=== PATIENT | female | born 1955 | race Caucasian/White ===

== ENCOUNTER 2022-08-17 10:30 | Emergency (ER) | payer MEDICARE, MEDICAID, SELFPAY ==
[2022-08-17 10:23] VITALS: BP 170/92; PULSE 104; RESP 20; TEMP 36.6; O2SAT 98
--- NOTE | 2022-08-17 10:34 | ED.GENADULT ---
HPI - General Adult General Chief complaint: Upper Respiratory Infection Stated complaint: sick since History of Present Illness HPI narrative: 67-year-old female presenting the emergency department for evaluation of nasal congestion, intermittent ear pain and body aches. Patient states she began having the symptoms on Thursday. Patient denies any associated nausea or vomiting. Patient states that she was vaccinated against COVID but not against influenza. Related Data Allergies Allergy/AdvReac Type Severity Reaction Status Date / Time metronidazole Allergy Severe metronidazole Verified 08/17/22 11:01 ([id number]) gluten Allergy Mild gluten Verified 08/17/22 11:01 ([id number]) Penicillins Allergy Unknown Penicillins Verified 08/17/22 11:01 ([id number]) Review of Systems Review of Systems: CONSTITUTIONAL: See HPI EYES: Denies visual changes, redness, or discharge. ENT: See HPI CARDIOVASCULAR: Denies chest pain, palpitations, or edema. RESPIRATORY: See HPI GASTROINTESTINAL: Denies abdominal pain, nausea, vomiting, or diarrhea. GENITOURINARY: Denies dysuria or hematuria. SKIN: Denies rash or itching. MUSCULOSKELETAL: Denies back pain, joint pain, or myalgia. NEUROLOGIC: Denies headache, numbness, or weakness. PSYCHIATRIC: Denies anxiety or depression. [facility] Family History Family History (Updated 04/16/18 @ 07:58 by DOCTOR UNKNOWN) Other Carcinoma of colon Hypertension Social History Social History Smoking status: Never smoker Alcohol intake: current Exam Narrative: APPEARANCE: Well appearing, no pain, no distress, well-nourished. HEAD: normocephalic, atraumatic. EYES: PERRLA/EOMI, conjunctivae clear. NOSE: Normal no drainage EARS: Some fluid behind TMs bilaterally. No bulging or erythematous TMs. THROAT: Pharynx clear, no exudate. NECK: Supple. No adenopathy, no masses. RESPIRATORY: Lungs are clear to auscultation, respirations nonlabored CARDIOVASCULAR: Regular rate and rhythm without murmurs rubs or gallops. ABDOMINAL: Soft, nontender, nondistended, normal bowel sounds MUSCULOSKELETAL: Moves all extremities. Strength/ROM intact, No edema, No calf tenderness. NEURO: Alert. Cranial nerves II through XII intact. Grossly intact SKIN: Warm, dry. Normal Color Course Course Emergency Course: Patient was negative for flu and for COVID. Patient's vital signs are within normal limits. Patient most likely has a viral etiology for her underlying symptoms. Patient was provided Tessalon Perles and albuterol inhaler for symptom control. Patient was educated on the importance of close follow-up with her primary care physician. Vital Signs Vital signs: Vital Signs Temperature 97.8 F 08/17/22 10:23 Pulse Rate 104 H 08/17/22 10:23 Respiratory Rate 20 08/17/22 10:23 Blood Pressure 170/92 H 08/17/22 10:23 Pulse Oximetry 98 08/17/22 10:23 Oxygen Delivery Room Air 08/17/22 10:23 Temperature 97.8 F 08/17/22 10:23 Pulse Rate 94 08/17/22 12:40 Respiratory Rate 18 08/17/22 12:40 Blood Pressure 157/97 H 08/17/22 12:40 Pulse Oximetry 98 08/17/22 12:40 Oxygen Delivery Room Air 08/17/22 10:36 Medical Decision Making Vital Signs Vital Signs: Vital Signs Temperature 97.8 F 08/17/22 10:23 Pulse Rate 104 H 08/17/22 10:23 Respiratory Rate 20 08/17/22 10:23 Blood Pressure 170/92 H 08/17/22 10:23 Pulse Oximetry 98 08/17/22 10:23 Oxygen Delivery Room Air 08/17/22 10:23 Temperature 97.8 F 08/17/22 10:23 Pulse Rate 94 08/17/22 12:40 Respiratory Rate 18 08/17/22 12:40 Blood Pressure 157/97 H 08/17/22 12:40 Pulse Oximetry 98 08/17/22 12:40 Oxygen Delivery Room Air 08/17/22 10:36 Lab Data Lab results reviewed: Yes I reviewed the patient's lab results. Labs: Lab Results 08/17/22 Range/Units 10:40 Influenza A (RT-PCR) Negative (Negative) Influenza B (RT-PCR) Negative (Negative) RSV (RT-PCR
[2022-08-17 10:36] VITALS: O2SAT 99
[2022-08-17 10:59] VITALS: BP 170/95; PULSE 88; RESP 18; O2SAT 96
[2022-08-17 11:28] LABS: Influenza A QL RT-PCR Negative (Negative); Influenza B QL RT-PCR Negative (Negative); RSV RNA, RT-PCR Negative (Negative); SARS-CoV-2 RNA PCR Negative
[2022-08-17 11:55] VITALS: BP 168/86; PULSE 80; RESP 18; O2SAT 96
[2022-08-17 12:40] VITALS: BP 157/97; PULSE 94; RESP 18; O2SAT 98
== END 2022-08-17 12:40 | disposition home or self-care (01) ==
PROVIDERS: Emergency Provider Emergency Medicine
DX: J06.9 Acute upper respiratory infection, unspecified (principal); Z20.822 Contact with and (suspected) exposure to COVID-19
CPT/HCPCS: 87637; 99283

== ENCOUNTER 2023-04-23 12:25 | Observation (INO) | payer MEDICARE, MEDICAID, SELFPAY ==
[2023-04-23] VITALS (40 sets, daily range): BP systolic 154–209; BP diastolic 70–105; PULSE 67–91; RESP 11–25; TEMP 36.4–36.7; O2SAT 93–100; BMI 40.8
--- NOTE | ~2023-04-23 | XR_ITS ---
XR chest 2V 04/23/2023 15:14 Indication: Syncope. Nausea and vomiting. Procedure: 2 view chest 06/07/2015 Comparison: 06/07/2015 Findings: Cardiomegaly. Subsegmental atelectasis left mid thorax. No focal pneumonia, edema, pleural effusion or pneumothorax. Impression: 1: Subsegmental atelectasis left mid thorax. Reviewed, dictated and finalized at location L. Impression: 1: Subsegmental atelectasis left mid thorax.
--- NOTE | ~2023-04-23 | MR_ITS ---
EXAMINATION: MR brain/brain stem wo con DATE: 04/24/2023 15:43 INDICATION: Severe vertigo TECHNIQUE: Magnetic resonance imaging (MRI) of the brain and brainstem was performed without intraven ous contrast. Sequences included sagittal and axial T1-weighted SE, axial diffusion-weighted FS SE, a xial T2*-weighted GRE, axial T2-weighted FLAIR, and axial T2-weighted FSE. Postcontrast axial and cor onal T1-weighted SE was obtained. Apparent diffusion coefficient (ADC) maps were created. COMPARISON: Head CT and CT angiogram dated 04/23/2023 FINDINGS: There are no areas of restricted diffusion to suggest acute infarction. No intracranial hemorrhage or abnormal intracranial mass lesion. There are scattered areas of nonspecific increased T2-weighted si gnal intensity in the cerebral white matter, predominantly involving the deep and periventricular whi te matter. There are no intraparenchymal signal abnormalities seen on the other pulse sequences. The ventricles are symmetric and normal in size. There are no abnormal extra-axial fluid collections. Mane w voids are seen in the cerebral arteries on the T2-weighted sequences consistent with their expected patency. Mild mucosal thickening the paranasal sinuses with is retention cyst in the right maxillary sinus. Visualized orbits and soft tissues are unremarkable. IMPRESSION: 1. Extensive scattered cerebral, deep and pontine white matter T2 hyperintensity likely sequela of ch ronic small vessel ischemic disease. No acute intracranial process. Reviewed, dictated and finalized at location A. IMPRESSION: 1. Extensive scattered cerebral, deep and pontine white matter T2 hyperintensit y likely sequela of chronic small vessel ischemic disease. No acute intracrania l process.
--- NOTE | ~2023-04-23 | CT_ITS ---
EXAMINATION: CTA BRAIN/CAROTID DATE: 04/23/2023 14:57 INDICATION: Syncope TECHNIQUE: Computed tomographic angiography (CTA) of the head and neck was performed with 100 mL Omni paque-350 intravenous contrast. Multiplanar reconstructions and maximum intensity projection 3D-recon structions of the carotid arteries and of the intracranial arteries were created by the technologist on a separate workstation. Precontrast CT of the head was also obtained. Automated exposure control and iterative reconstruction technique were employed.The dose-length product was 1825.91 mGy-cm. COMPARISON: None. FINDINGS: Carotid arteries: Normal caliber of the thoracic aorta with small amount of atherosclerotic plaque with no stenosis or dissection. There is 0% stenosis of the right carotid bulb relative to normal distal artery lumen marizol meter (NASCET criteria). Mild tortuosity of the more distal extra cranial internal carotid artery wit h 30% stenosis at a mild kink in the artery where it undergoes a relatively abrupt change in course. There is 0% stenosis of the left carotid bulb relative to normal distal artery lumen diameter. There is tortuosity of the proximal aspect of the bilateral vertebral arteries. Mild cervical spondylosis. Respiratory motion and mild atelectasis in the visualized mid to upper lung zones. Head: No acute intracranial hemorrhage, acute infarction or abnormal extra axial fluid collection. There is moderate scattered white matter hypoattenuation consistent with chronic small vessel ischemic diseas e. Ventricles are normal and symmetric. No mass/mass effect. The orbits, paranasal sinuses and masto id air cells are normal. Intracranial arteries There is no hemodynamically significant stenosis in the vertebral, basilar and internal carotid arter ies. Vertebral arteries are codominant. There are no aneurysms identified. Both A1 and P1 segments a re patent. There is also a patent right posterior commuting artery. Cerebral arterial arborization ap pears symmetric. No abnormally enhancing brain lesions identified. IMPRESSION: 1. No acute intracranial process with moderate scattered white matter hypoattenuation consistent with chronic small vessel ischemic disease.. 2. 0% stenosis of the right and left carotid bulbs relative to normal distal artery lumen diameter (N ASCET criteria). There is however a 30% stenosis in the more distal extracranial right internal carot id artery due to a kink in the course of the artery. 3. Unremarkable cerebral CT angiogram with no evident thrombosis, aneurysm or dissection. Reviewed, dictated and finalized at location A. IMPRESSION: 1. No acute intracranial process with moderate scattered white matter hypoatten uation consistent with chronic small vessel ischemic disease.. 2. 0% stenosis of the right and left carotid bulbs relative to normal distal ar rashaun lumen diameter (NASCET criteria). There is however a 30% stenosis in the m ore distal extracranial right internal carotid artery due to a kink in the cour se of the artery. 3. Unremarkable cerebral CT angiogram with no evident thrombosis, aneurysm or d issection.
--- NOTE | 2023-04-23 12:51 | ECG_ITS ---
Measurements Intervals [place] Rate: 74 P: 0 [place]: 140 QRS: -19 QRSD: 134 T: 15 QT: 418 QTc: 467 Interpretive Statements SINUS RHYTHM WITH FREQUENT VENTRICULAR PREMATURE COMPLEXES INTRAVENTRICULAR CONDUCTION DELAY [130+ ms QRS DURATION] VOLTAGE CRITERIA FOR LVH [MEETS CRITERIA IN ONE OF: R(aVL), S(V1), R(V5), R(V5/V6)+S(V1)] NO PREVIOUS ECG AVAILABLE FOR COMPARISON Electronically Signed On 04-23-2023 15:40:43 CDT by Bethany Black M.D.
[2023-04-23 12:57] LABS: Basophils Absolute Auto 0.1 K/mm3 (0.0-0.1); Basophils Percent Auto 1.2 % (0.2-1.2); Eosinophils Absolute Auto 0.1 K/mm3 (0-0.3); Eosinophils Percent Auto 0.7 % (0-4.4); Hematocrit 46.3 % (37.0-47.0); Hemoglobin 15.3 g/dL (12.0-15.0); Immature Granulocyte Absolute 0.11 K/mm3 (0.00-0.031); Immature Granulocyte Percent A 1.5 % (0-0.5); Lymphocytes Absolute Auto 1.44 K/mm3 (0.9-3.2); Mean Corpuscular Hemoglobin 32.2 pg (26-34); Mean Corpuscular Volume 97.5 fl (80-100); Mean Platelet Volume 10.1 fl (7.4-10.4); Monocytes Absolute Auto 0.4 K/mm3 (0.1-0.6); Monocytes Percent Auto 5.7 % (2.6-8.5); Neutrophils Absolute Auto 5.5 K/mm3 (1.3-6.7); Neutrophils Percent Auto 71.9 % (45.5-73.1); Platelet Count Result 213 k/mm3 (150-375); Red Blood Count 4.75 M/mm3 (4.2-5.4); Red Cell Distribution Width 14.1 % (11.5-14.5); White Blood Count 7.6 K/mm3 (4.5-10.0)
[2023-04-23 13:06] LABS: Anion Gap 5 mmol/L (8-16); Blood Urea Nitrogen 17 mg/dL (7-17); Carbon Dioxide 25 mmol/L (22-30); Chloride 104 mmol/L (98-107); Estimated CRCL calculation 130 ml/min; Potassium 3.8 mmol/L (3.4-5.0); Sodium 134 mmol/L (137-145)
[2023-04-23 13:07] LABS: Alanine Aminotransferase 22 U/L (6-35); Albumin Level 4.3 g/dL (3.5-5.1); Alkaline Phosphatase 81 U/L (38-126); Aspartate Amino Transferase 23 U/L (14-36); Bilirubin,Total 0.8 mg/dL (0.2-1.3); Calcium 8.2 mg/dL (8.4-10.2); Estimated Glomerular Filt Rate > 60; Glucose 169 mg/dL (65-110); Lipase 42 U/L (23-300)
--- NOTE | 2023-04-23 13:24 | ED.NAVMDI ---
HPI - Nausea/Vomiting/Diarrhea General Chief complaint: Nausea/Vomiting/Diarrhea Stated complaint: N/V, SYNCOPY Time Seen by Provider: 04/23/23 13:23 History of Present Illness HPI Narrative: Patient is a 68-year-old healthy female here with dizziness and syncope. She states that around 730 this morning she was lying in bed and began noticing dizziness. She describes it as the room spinning around her. It is worse with her eyes open and improves with her eyes closed. She denies any changes of the dizziness with positional changes. No history of vertigo in the past. She notes that the dizziness is associated with nausea, vomiting and 2 episodes of syncope. She describes a syncope as 2 episodes of passing out when the dizziness was severe. No prodromal chest pain or shortness of breath. No current chest pain or shortness of breath. No known cardiac history. No prior strokes. No upper or lower extremity numbness or weakness. No facial droop. No trauma. No cough, congestion, fever, chills. No urinary symptoms. Related Data Home Medications Medication Instructions Recorded Confirmed No Home Medications 04/23/23 04/23/23 Allergies Allergy/AdvReac Type Severity Reaction Status Date / Time metronidazole Allergy Severe metronidazole Verified 04/23/23 12:57 ([id number]) gluten Allergy Mild gluten Verified 04/23/23 12:57 ([id number]) Penicillins Allergy Unknown Penicillins Verified 04/23/23 12:57 ([id number]) Review of Systems Review of Systems: CONSTITUTIONAL: Denies fever, chills, or sweats. EYES: Denies visual changes, redness, or discharge. ENT: Denies rhinorrhea, congestion, sore throat, or otalgia. CARDIOVASCULAR: Denies chest pain, palpitations. + syncope, + dizziness. RESPIRATORY: Denies cough or dyspnea. GASTROINTESTINAL: Has nausea and vomiting. Denies abdominal pain, or diarrhea. GENITOURINARY: Denies dysuria or hematuria. SKIN: Denies rash or itching. MUSCULOSKELETAL: Denies back pain, joint pain, or myalgia. NEUROLOGIC: Denies headache, numbness, or weakness. PSYCHIATRIC: Denies anxiety or depression. [facility] Family History Family History Other Carcinoma of colon Hypertension Social History Social History Smoking status: Never smoker Alcohol intake: current Drinks per week: 1 Substance use: never Lack of Transportation: No Lack of Food: Never True Current Housing: I Have Housing Concerned About Future Housing: No Difficulty Paying Gas/Electric Bills: No Difficulty Paying for Meds: No Currently Unemployed: No Education: Don't Know Difficulty w/ Childcare or Family Care: No Spiritual care concerns: No Exam Narrative: GENERAL: Well-appearing, well-nourished, and in no acute distress. HEAD: Normocephalic, atraumatic. EYES: PERRLA and EOMI. Bilateral fatigable horizontal nystagmus ENT: Nares clear. Mucous membranes moist. NECK: Supple. CHEST: Clear to auscultation. No respiratory distress. HEART: Regular rate and rhythm. Normal peripheral pulses. ABDOMEN: Soft, nontender, nondistended. EXTREMITIES: Normal range of motion. No edema. SKIN: Warm, dry, no rash. NEURO: No focal deficits. No upper lower extremity drift. No facial droop. Poor compliance with [id number] or heel to salgado given difficulty keeping eyes open. Alert and oriented x3. PSYCH: Normal mood and affect. Course Course Emergency Course: Chart review performed. Patient's last ED visit was in 2021 for nasal congestion. Triage vitals show HTN of 209/105 initially followed by 165/90. Remainder of vitals within normal limits. Triage note shows here with dizziness and syncope. Patient seen evaluated. She does have a horizontal nystagmus, exam is most likely consistent with peripheral vertigo however given her age and inability to fully complete a neurologic exam will do CT CTA. Will start with Valium, Zofran. Given
[2023-04-23 13:27] LABS: Appearance Urine Clear (Clear); Bacteria Urine None Seen /hpf; Bilirubin Urine Negative (Negative); Blood Urine Negative (Negative); Color Urine Yellow (Yellow); Glucose Urine UA Negative (Negative); Ketones Urine 1+ mg/dL (Negative); Leukocyte Esterase Ur 1+ LEU/UL (Negative); Nitrate Urine Negative (Negative); Non Pathogenic Casts 0-2; Protein Urine 2+ mg/dL (Negative); RBC Urine 0-2 /hpf (0-2); Specific Grav Ur 1.016 (1.001-1.035); Squamous Epithelial Cell Urine None seen /hpf (Few); Urobilinogen Urine 0.2 mg/dL (<2.0)
[2023-04-23 13:30] LABS: Add Urine Microscopic? YES
[2023-04-23] MEDS: ONDANSETRON INJ 4 MG/2 ML VIAL IV PUSH (14:18)
[2023-04-23] MEDS: diazePAM INJ (*CRX) 10 MG/2 ML SYRINGE 5 MG IV PUSH ×2 (14:18→16:15)
--- NOTE | 2023-04-23 14:29 | PC.NURSE ---
pt off the floor to CT @1427. unable to assess orthostatic bp at this time due to unsteady gait from dizziness.
[2023-04-23 14:49] LABS: Troponin I < 0.012 ng/mL (0.000-0.034)
[2023-04-23] MEDS: MECLIZINE HCL 25 MG TABLET PO (16:13)
[2023-04-23 16:19] LABS: Troponin I < 0.012 ng/mL (0.000-0.034)
--- NOTE | 2023-04-23 20:15 | ADMGEN ---
This patient, Miley Vo, was admitted to Medical Room 247-. Patient/family oriented to hospital policies and general routines including ID bracelet, bed and alarms, visiting hours, pain management, procedures, bathroom and other care routines, personal items, smoking policy, room service/diet, and visiting hours. Information on how to activate the Rapid Response Team has been discussed. Patient/Family are encouraged to report perceived risks to care and to ask questions if they do not understand what they are told or what they should do.
--- NOTE | 2023-04-23 20:24 | PM.IMHP ---
H&P: HPI History of Present Illness Date/Time: 04/23/23 20:30 Chief Complaint: Dizziness, nausea, vomiting. Narrative: This is a 68-year-old female who presented to the emergency department via EMS from home for evaluation of dizziness, nausea, vomiting. The patient provides the following history. She felt fine when she got up this morning and after getting dressed she sat down to watch television. Shortly thereafter she developed sudden onset of severe vertigo described as ?everything was spinning? associated with nausea and multiple episodes of emesis. She was able to make her weight to bed where she believes that she had a brief syncopal episode. After lying down for a few minutes her symptoms improved albeit briefly before returning. The vertigo is worse with position changes and even with opening her eyes. She denies diplopia, facial droop, difficulty speaking and swallowing, focal weakness, and paresthesias. No headache, sinus congestion, sore throat, ear pain, hearing changes, or ringing in the ears. She has not had chest pain, palpitations, or sensations of racing heart. Of note her blood pressure was 209/105 on arrival to the ED. it has improved but her systolic readings continue to be in the 150s to 170s. She reports a history of hypertension but she is not currently on medication. Review of Systems Review of Systems: Twelve systems were reviewed. No headache, visual changes, or chest pain. Except as documented, all other systems were reviewed and are negative. [facility] Past Medical History Medical History Diverticulosis Hypertension Surgical History Surgical History (Updated 04/24/23 @ 14:38 by Sherron Christie PA-C) No history of previous surgery Family History Family History Other Carcinoma of colon Hypertension Social History Social History (Updated 04/24/23 @ 14:38 by Sherron Christie PA-C) Social History: Code status: Full code. Smoking status: Never smoker Alcohol intake: current Drinks per week: 1 Substance use: never Lack of Transportation: No Lack of Food: Never True Current Housing: I Have Housing Concerned About Future Housing: No Difficulty Paying Gas/Electric Bills: No Difficulty Paying for Meds: No Currently Unemployed: No Education: Don't Know Difficulty w/ Childcare or Family Care: No Spiritual care concerns: No Meds Home Medications and Allergies Home Medications Medication Instructions Recorded Confirmed Type No Home Medications 04/23/23 04/23/23 History Allergies Allergy/AdvReac Type Severity Reaction Status Date / Time metronidazole Allergy Severe metronidazole Verified 04/23/23 12:57 ([id number]) gluten Allergy Mild gluten Verified 04/23/23 12:57 ([id number]) Penicillins Allergy Unknown Penicillins Verified 04/23/23 12:57 ([id number]) Vital Signs Vital Signs - 24 hr 04/23/23 12:24 04/23/23 12:55 04/23/23 12:55 Temperature 97.6 F Pulse Rate 79 75 75 Respiratory Rate 16 18 17 Blood Pressure 209/105 H 165/90 H 165/90 H Pulse Oximetry 100 99 97 Oxygen Delivery Room Air 04/23/23 12:56 04/23/23 13:00 04/23/23 13:16 Temperature Pulse Rate 72 74 71 Respiratory Rate 13 18 14 Blood Pressure Pulse Oximetry 100 94 Oxygen Delivery 04/23/23 13:30 04/23/23 13:46 04/23/23 14:00 Temperature Pulse Rate 69 76 79 Respiratory Rate 11 L 22 H 13 Blood Pressure Pulse Oximetry 93 98 99 Oxygen Delivery 04/23/23 14:02 04/23/23 14:15 04/23/23 14:58 Temperature Pulse Rate 73 75 80 Respiratory Rate 15 21 H 14 Blood Pressure 175/85 H Pulse Oximetry 97 97 Oxygen Delivery 04/23/23 15:00 04/23/23 15:02 04/23/23 15:15 Temperature Pulse Rate 67 76 73 Respiratory Rate 11 L 16 16 Blood Pressure 154/88 H Pulse Oximetry 97 95 100 Oxygen Delivery
[2023-04-24] VITALS (10 sets, daily range): BP systolic 113–149; BP diastolic 53–69; PULSE 75–89; RESP 18–20; TEMP 36.7–37.2; O2SAT 92–96
--- NOTE | 2023-04-24 | ECHO_ITS ---
Patient Info Name: Miley Vo Age: 68 years : 1955 Gender: Female Ht: 64 in Wt: 237 lbs BSA: 2.26 m2 HR: 83 bpm BP: 149 / 69 mmHg Technical Quality: Fair Exam Date: 04/24/2023 2:02 PM Exam Location: [facility] Pulmonary Exam Room: [facility] Patient Status: Inpatient Admit Date: 04/23/2023 Staff Ordering Physician: Sherron Christie PA-C Partition Setter: Natasha Porras RDCS Attending Provider: Jackie Ryan DO Referring Physician: Pratik CHAVEZ; Exam Type: CA echo doppler color flow Study Info Indications - HTN Complete two-dimensional, color flow and Doppler transthoracic echocardiogram is performed. Summary 1. Complete two-dimensional, color flow and Doppler transthoracic echocardiogram is performed. 2. Left ventricular chamber dimension is normal. 3. Left ventricular systolic function is normal, estimated at 60-65%. 4. There is mild concentric increased left ventricular wall thickness. 5. The left ventricular diastolic function is grade I diastolic dysfunction. 6. E/e' 13 is mildly elevated. 7. Left atrial chamber dimension is mildly enlarged. 8. There is mild aortic valve sclerosis. 9. There is mild to moderate aortic valve regurgitation. 10. There is mild mitral valve regurgitation. 11. There is trace tricuspid valve regurgitation. 12. Mild pulmonary hypertension, estimated pulmonary arterial systolic pressure is 40 mmHg. 13. There is trace pulmonic regurgitation. Left Ventricle E/e' 13 is mildly elevated. Left ventricular chamber dimension is normal. Left ventricular systolic function is normal, estimated at 60-65%. There is mild concentric increased left ventricular wall thickness. The left ventricular diastolic function is grade I diastolic dysfunction. Right Ventricle Right ventricular chamber dimension is normal. Right ventricular systolic function is normal. Left Atria Left atrial chamber dimension is mildly enlarged. Right Atria Right atrial chamber dimension is normal. Aortic Valve The aortic valve is trileaflet. There is mild aortic valve sclerosis. There is no aortic valve stenosis. There is mild to moderate aortic valve regurgitation. Pulmonic Valve There is trace pulmonic regurgitation. Mitral Valve There is no mitral valve stenosis. There is mild mitral valve regurgitation. Tricuspid Valve There is trace tricuspid valve regurgitation. Mild pulmonary hypertension, estimated pulmonary arterial systolic pressure is 40 mmHg. Pericardium/Pleural There is no pericardial effusion. Inferior Vena Cava Normal inferior vena cava with >50% collapse upon inspiration consistent with normal right atrial pressure, 5 mmHg. Aorta The aortic root size at the sinus of Valsalva is normal. Left Ventricular Outflow Tract Name Value Normal LVOT 2D LVOT Diameter 2.1 cm LVOT Doppler LVOT Peak Gradient 5 mmHg LVOT Mean Gradient 3 mmHg LVOT VTI 23 cm LVOT VTI/AV VTI Ratio 0.9 LVOT Stroke Volume 79 ml LVOT CO 16.3 l/min LVOT CI 7.2 l/min/m2 Pulmo
[2023-04-24] MEDS: MECLIZINE HCL 12.5 MG TABLET PO ×2 (05:24→12:42)
[2023-04-24] MEDS: ACETAMINOPHEN 325 MG TABLET 650 MG PO ×2 (05:24→12:42)
[2023-04-24 05:48] LABS: Hematocrit 42.1 % (37.0-47.0); Hemoglobin 14.1 g/dL (12.0-15.0); Mean Corpuscular HGB Conc 33.5 g/dl (32-36); Mean Corpuscular Volume 95.5 fl (80-100); Mean Platelet Volume 10.3 fl (7.4-10.4); Platelet Count Result 239 k/mm3 (150-375); Red Blood Count 4.41 M/mm3 (4.2-5.4); Red Cell Distribution Width 13.9 % (11.5-14.5); White Blood Count 12.5 K/mm3 (4.5-10.0)
[2023-04-24 05:59] LABS: Anion Gap 3 mmol/L (8-16); Blood Urea Nitrogen 17 mg/dL (7-17); Calcium 8.2 mg/dL (8.4-10.2); Carbon Dioxide 26 mmol/L (22-30); Chloride 105 mmol/L (98-107); Cholesterol 239 mg/dL (0-200); Estimated CRCL calculation 105 ml/min; Estimated Glomerular Filt Rate > 60; Glucose 109 mg/dL (65-110); HDL Direct 50 mg/dL; Magnesium 1.9 mg/dL (1.6-2.3); Potassium 3.6 mmol/L (3.4-5.0); Sodium 134 mmol/L (137-145); Triglycerides 133 mg/dL (<150)
[2023-04-24 06:10] LABS: LDL Cholesterol Direct 149 mg/dL
--- NOTE | 2023-04-24 07:22 | P.DS_ITS ---
DS: Admitting Diagnosis Discharge Date 04/24/23 Admitting Diagnosis Uncontrolled hypertension, vertigo DS: Discharge Diagnosis Discharge Diagnosis (1) Vertigo: Code(s): R42 - Dizziness and giddiness Status: Acute Assessment and Plan: * Presented to the ED with complaints of dizzziness, nausea, vomiting * EKG stable SR 74 * CT of the brain 0% stenosis bilateral carotids, no acute findings * MRI brain ordered * BP noted to be 209/105 * PT for vestibular therapy * Most likely related to hypertension * Current BP is 149/69 * Continue meclizine 12.5 mg PO QID PRN * Echo ordered (2) Uncontrolled hypertension: Code(s): I10 - Essential (primary) hypertension Status: Acute Assessment and Plan: * BP upon arrival 209/105 * current BP is 149/69 * Start lisinopril 5mg PO Daily * Continue to trend BP * Adjust medications as indicated (3) Nausea and vomiting: Qualifiers: Vomiting type: unspecified Qualified Code(s): R11.2 - Nausea with vomiting, unspecified Code(s): R11.2 - Nausea with vomiting, unspecified Status: Acute Assessment and Plan: * Most likely related to Vertigo * Clear liquids for now * advance diet as indicated (4) Hyperlipidemia: Qualifiers: Hyperlipidemia type: moderate mixed hyperlipidemia not requiring statin therapy Qualified Code(s): E78.2 - Mixed hyperlipidemia Code(s): E78.5 - Hyperlipidemia, unspecified Status: Acute Assessment and Plan: * Lipid panel cholesterol 239, Triglycerides 133, LDL 149, HDL 50 * Start atorvastatin 40mg PO daily DS: Summary Time Spent with Patient Time attestation: Total time spent providing and/or coordinating discharge services: Exam Narrative: General: well-nourished, well-appearing 68-year-old female, sitting up in bed, comfortable, NARD Neuro: awake, alert and oriented x4, speech clear, no focal neuro deficits noted HEENMT: normocephalic, atraumatic, EOMI, sclerae anicteric, moist oral mucosa Respiratory: Clear to auscultation bilaterally without crackles, rhonchi or wheezes, nonlabored breathing Cardio: regular rate, regular rhythm with S1-S2 Abdomen: nondistended, normoactive bowel sounds, soft, nontender to palpation Extremities: no edema, erythema, or tenderness to palpation, DP pulses 2+ bilaterally Skin: no rashes or lesions, warm and dry Psych: appropriate mood and affect, judgment and insight intact DS: Data Data Completed and Pending Labs on day of discharge: Labs from last 24 hours 04/24/23 04/23/23 04/23/23 05:11 15:49 13:12 WBC 12.5 H RBC 4.41 Hgb 14.1 Hct 42.1 MCV 95.5 MCH 32.0 MCHC 33.5 RDW 13.9 Plt Count 239 MPV 10.3 Immature Gran % (Auto) Neut % (Auto) Lymph % (Auto) [place] % (Auto) Eos % (Auto) Baso % (Auto) Lymph # (Auto) [place] # (Auto) Eos # (Auto) Baso # (Auto) Abs Immat Gran (auto) Absolute Neuts (auto) Absolute Nucleated RBC Nucleated RBC % Sodium 134 L Potassium 3.6 Chloride 105
--- NOTE | 2023-04-24 07:22 | PM.DS ---
DS: Admitting Diagnosis Discharge Date 04/24/23 Admitting Diagnosis Uncontrolled hypertension, vertigo DS: Discharge Diagnosis Discharge Diagnosis (1) Vertigo: Code(s): R42 - Dizziness and giddiness Status: Acute Assessment and Plan: Presented to the ED with complaints of dizzziness, nausea, vomiting EKG stable SR 74 CT of the brain 0% stenosis bilateral carotids, no acute findings MRI brain ordered BP noted to be 209/105 PT for vestibular therapy Most likely related to hypertension Current BP is 149/69 Continue meclizine 12.5 mg PO QID PRN Echo ordered (2) Uncontrolled hypertension: Code(s): I10 - Essential (primary) hypertension Status: Acute Assessment and Plan: BP upon arrival 209/105 current BP is 149/69 Start lisinopril 5mg PO Daily Continue to trend BP Adjust medications as indicated (3) Nausea and vomiting: Qualifiers: Vomiting type: unspecified Qualified Code(s): R11.2 - Nausea with vomiting, unspecified Code(s): R11.2 - Nausea with vomiting, unspecified Status: Acute Assessment and Plan: Most likely related to Vertigo Clear liquids for now advance diet as indicated (4) Hyperlipidemia: Qualifiers: Hyperlipidemia type: moderate mixed hyperlipidemia not requiring statin therapy Qualified Code(s): E78.2 - Mixed hyperlipidemia Code(s): E78.5 - Hyperlipidemia, unspecified Status: Acute Assessment and Plan: Lipid panel cholesterol 239, Triglycerides 133, LDL 149, HDL 50 Start atorvastatin 40mg PO daily DS: Summary Time Spent with Patient Time attestation: Total time spent providing and/or coordinating discharge services: Exam Narrative: General: well-nourished, well-appearing 68-year-old female, sitting up in bed, comfortable, NARD Neuro: awake, alert and oriented x4, speech clear, no focal neuro deficits noted HEENMT: normocephalic, atraumatic, EOMI, sclerae anicteric, moist oral mucosa Respiratory: Clear to auscultation bilaterally without crackles, rhonchi or wheezes, nonlabored breathing Cardio: regular rate, regular rhythm with S1-S2 Abdomen: nondistended, normoactive bowel sounds, soft, nontender to palpation Extremities: no edema, erythema, or tenderness to palpation, DP pulses 2+ bilaterally Skin: no rashes or lesions, warm and dry Psych: appropriate mood and affect, judgment and insight intact DS: Data Data Completed and Pending Labs on day of discharge: Labs from last 24 hours 04/24/23 04/23/23 04/23/23 05:11 15:49 13:12 WBC 12.5 H RBC 4.41 Hgb 14.1 Hct 42.1 MCV 95.5 MCH 32.0 MCHC 33.5 RDW 13.9 Plt Count 239 MPV 10.3 Immature Gran % (Auto) Neut % (Auto) Lymph % (Auto) [place] % (Auto) Eos % (Auto) Baso % (Auto) Lymph # (Auto) [place] # (Auto) Eos # (Auto) Baso # (Auto) Abs Immat Gran (auto) Absolute Neuts (auto) Absolute Nucleated RBC Nucleated RBC % Sodium 134 L Potassium 3.6 Chloride 105 Carbon Dioxide 26 Anion Gap 3 L BUN 17 Creatinine 0.50 L Estim Creat Clear Calc 105 Estimated GFR > 60 Glucose 109 Calcium 8.2 L Magnesium 1.9 Total Bilirubin AST ALT Alkaline Phosphatase Troponin I < 0.012 Total Protein Albumin Triglycerides 133 Cholesterol 239 H LDL Cholesterol Direct 149 HDL Direct 50 Lipase Urine Color Yellow Urine Appearance Clear Urine pH 7.0 Ur Specific [place] 1.016 Urine Protein 2+ H Urine Glucose (UA) Negative Urine Ketones 1+ H Ur Blood (Man) Negative Urine Nitrate Negative Urine Bilirubin Negative Urine Urobilinogen 0.2 Leukocyte Esterase Rfl 1+ H Urine RBC 0-2 Urine WBC 11-20 H Ur Squamous Epith Cells None seen Urine Bacteria None seen Urine Casts 0-2
[2023-04-24] MEDS: lisinopriL 5 MG TABLET PO (08:15)
--- NOTE | 2023-04-24 10:15 | PM.IMPN ---
Progress Note: A&P Assessment and Plan (1) Vertigo: Code(s): R42 - Dizziness and giddiness Status: Acute Assessment and Plan: Presented to the ED with complaints of dizzziness, nausea, vomiting EKG stable SR 74 CT of the brain 0% stenosis bilateral carotids, no acute findings MRI brain ordered BP noted to be 209/105 PT for vestibular therapy Most likely related to hypertension Current BP is 149/69 Continue meclizine 12.5 mg PO QID PRN Echo ordered (2) Uncontrolled hypertension: Code(s): I10 - Essential (primary) hypertension Status: Acute Assessment and Plan: BP upon arrival 209/105 current BP is 149/69 Start lisinopril 5mg PO Daily Continue to trend BP Adjust medications as indicated (3) Nausea and vomiting: Qualifiers: Vomiting type: unspecified Qualified Code(s): R11.2 - Nausea with vomiting, unspecified Code(s): R11.2 - Nausea with vomiting, unspecified Status: Acute Assessment and Plan: Most likely related to Vertigo Clear liquids for now advance diet as indicated (4) Hyperlipidemia: Qualifiers: Hyperlipidemia type: moderate mixed hyperlipidemia not requiring statin therapy Qualified Code(s): E78.2 - Mixed hyperlipidemia Code(s): E78.5 - Hyperlipidemia, unspecified Status: Acute Assessment and Plan: Lipid panel cholesterol 239, Triglycerides 133, LDL 149, HDL 50 Start atorvastatin 40mg PO daily Time Spent With Patient Time: 46 minutes Time with patient: Greater than 35 minutes Subjective Date/time seen: 04/24/23 1015 Interval history: 04/24/23 1015 patient stated that she is doing pretty okay. when I saw her patient stated that she had any dizziness however she had been out of bed yet. Shortly thereafter the patient did have some dizziness and started vomiting. She denies any current chest pain, shortness a breath, fevers, sweats, chills. Blood pressure is also better 149/69. 04/23/23? 20:30 This is a 68-year-old female who presented to the emergency department via EMS from home for evaluation of dizziness, nausea, vomiting. The patient provides the following history. She felt fine when she got up this morning and after getting dressed she sat down to watch television. Shortly thereafter she developed sudden onset of severe vertigo described as ?everything was spinning? associated with nausea and multiple episodes of emesis. She was able to make her weight to bed where she believes that she had a brief syncopal episode. After lying down for a few minutes her symptoms improved albeit briefly before returning. The vertigo is worse with position changes and even with opening her eyes. She denies diplopia, facial droop, difficulty speaking and swallowing, focal weakness, and paresthesias. No headache, sinus congestion, sore throat, ear pain, hearing changes, or ringing in the ears. She has not had chest pain, palpitations, or sensations of racing heart. Of note her blood pressure was 209/105 on arrival to the ED. it has improved but her systolic readings continue to be in the 150s to 170s. She reports a history of hypertension but she is not currently on medication. Review of Systems Review of Systems: All systems reviewed & are unremarkable except as noted in HPI and below Exam Narrative: General: well-nourished, well-appearing 68-year-old female, sitting up in bed, comfortable, NARD Neuro: awake, alert and oriented x4, speech clear, no focal neuro deficits noted HEENMT: normocephalic, atraumatic, EOMI, sclerae anicteric, moist oral mucosa Respiratory: Clear to auscultation bilaterally without crackles, rhonchi or wheezes, nonlabored breathing Cardio: regular rate, regular rhythm with S1-S2 Abdomen: nondistended, normoactive bowel sounds, soft, nontender to palpation Extremities: no edema, erythema, or tenderness to
--- NOTE | 2023-04-24 15:20 | PC.NURSE ---
To MRI via stretcher.
--- NOTE | 2023-04-24 15:45 | PC.NURSE ---
Returned from MRI via stretcher.
[2023-04-24] MEDS: ATORVASTATIN 40 MG TABLET PO (20:54)
[2023-04-25] VITALS: PULSE 81
[2023-04-25 04:00] VITALS: PULSE 66
[2023-04-25 04:06] VITALS: BP 114/57; PULSE 70; RESP 20; TEMP 36.1; O2SAT 97
[2023-04-25] MEDS: ACETAMINOPHEN 325 MG TABLET 650 MG PO (04:30)
[2023-04-25 08:00] VITALS: PULSE 63
[2023-04-25 08:50] VITALS: BP 135/62
[2023-04-25 08:54] VITALS: BP 135/62
[2023-04-25] MEDS: lisinopriL 5 MG TABLET PO (08:54)
--- NOTE | 2023-04-25 10:49 | PM.DS ---
DS: Admitting Diagnosis Discharge Date 04/25/2023 Admitting Diagnosis Vertigo DS: Discharge Diagnosis Discharge Diagnosis (1) Vertigo: Code(s): R42 - Dizziness and giddiness Status: Acute Assessment and Plan: Presented to the ED with complaints of dizzziness, nausea, vomiting EKG NSR 74 CT of the brain 0% stenosis bilateral carotids, no acute findings MRI brain with evidence for atherosclerosis but without bleed stroke or mass BP noted to be 209/105 PT for vestibular therapy Echo with LVH, [id number] AR, mild MR, mild pulmonary hypertension at 40 mmHg Instructed on Nathalia exercises and instructed her to look up videos to guide her through performing these as needed (2) Uncontrolled hypertension: Code(s): I10 - Essential (primary) hypertension Status: Acute Assessment and Plan: BP upon arrival 209/105 current BP is 149/69 Started lisinopril 5mg PO Daily Patient wished to avoid blood pressure medicine at this time. States blood pressures are only elevated when stressed or at doctor's office. However does not monitor it at home. She does agree to purchase a blood pressure cuff and check her blood pressures twice daily until she sees a new primary physician and bring the readings with her. She will call the primary care office or go to the emergency department blood pressures are running 160/100 or greater. (3) Nausea and vomiting: Qualifiers: Vomiting type: unspecified Qualified Code(s): R11.2 - Nausea with vomiting, unspecified Code(s): R11.2 - Nausea with vomiting, unspecified Status: Acute Assessment and Plan: Most likely related to Vertigo Resolved (4) Hyperlipidemia: Qualifiers: Hyperlipidemia type: moderate mixed hyperlipidemia not requiring statin therapy Qualified Code(s): E78.2 - Mixed hyperlipidemia Code(s): E78.5 - Hyperlipidemia, unspecified Status: Acute Assessment and Plan: Lipid panel cholesterol 239, Triglycerides 133, LDL 149, HDL 50 Discussed with patient to follow-up with new primary physician and discuss treatment of cholesterol at the office visit (5) UTI (urinary tract infection), bacterial: Code(s): N39.0 - Urinary tract infection, site not specified; A49.9 - Bacterial infection, unspecified Status: Acute Assessment and Plan: One dose of ceftriaxone given on 04/25/2023 due to urine culture positive for pansensitive E coli Prescription for Bactrim DS 1 twice a day to take on 04/26/2023 through 04/27/2023 given at discharge DS: Summary Hospital Course Hospital Course: Admitted with acute vertigo. Positional. Better with eyes closed. No focal findings. Echocardiogram and MRI negative as above. Responded well to antiemetics and meclizine. Was able to walk to bathroom and tolerate diet by day of discharge. Blood pressures were controlled on low-dose lisinopril however she did not wish to take medication and so she followed up with her primary physician. Time Spent with Patient Time attestation: Total time spent providing and/or coordinating discharge services: Exam Narrative: HEENT: PERRL, sclerae nonicteric, pharyngeal mucosa pink and intact NECK: No JVD CHEST: Clear to auscultation. Normal effort. HEART: NL S1/S2, regular, no murmur ABDOMEN: BS+, soft, nontender, no mass, no bruits EXTREMITIES: No cyanosis, edema, or clubbing NEUROLOGIC: CN intact and symmetric to inspection, tone and strength symmetric MUSCULOSKELETAL: Without deformity to visual inspection PSYCH: Alert. Oriented to person, place, and time. Discharge Plan Discharge Attending physician on discharge: Gee Lopes Discharging Clinician: Terell Alexander Patient Disposition: Home, Self-Care Activity: as tolerated Diet: heart healthy and low sodium Discharge Instructions: Purchased digital arm blood pressure cuff and take readi
== END 2023-04-25 13:15 | disposition home or self-care (01) ==
LOC: ANHED 18:12 → ANH2MED 04-24 07:25
PROVIDERS: Physician Assistant; Student in an Organized Health Care Education/Training Program; Admitting Provider Student in an Organized Health Care Education/Training Program; Emergency Provider Student in an Organized Health Care Education/Training Program; Visit Provider Internal Medicine
DX: R42 Dizziness and giddiness (principal); E78.5 Hyperlipidemia, unspecified; N39.0 Urinary tract infection, site not specified; B96.20 Unspecified Escherichia coli [E. coli] as the cause of diseases classified elsewhere; I10 Essential (primary) hypertension; I45.4 Nonspecific intraventricular block; J98.11 Atelectasis; F10.90 Alcohol use, unspecified, uncomplicated; I08.0 Rheumatic disorders of both mitral and aortic valves; I27.20 Pulmonary hypertension, unspecified; Z82.49 Family history of ischemic heart disease and other diseases of the circulatory system
CPT/HCPCS: 36415; 70496; 70498; 70551; 71046; 80048; 80053; 80061; 81001; 83690; 83735; 84484; 85025; 85027; 87077; 87086; 87186; 93005; 93306; 96374; 96375; 96376; 99285; A9270; G0378; J0696; J2405; J3360; Q9967